=== PATIENT | female | born 2000 | race Caucasian/White ===

== ENCOUNTER 2023-05-23 16:07 | Emergency (ER) | payer BC ==
[2023-05-23] MEDS ORDERED: Boostrix 0.5 ML (Tdap) VIAL (>/=7 yrs of age) ONE (16:32)
== END 2023-05-23 18:25 | disposition home or self-care (01) ==
LOC: CSHERS 16:07
DX: S01.01XA Laceration without foreign body of scalp, initial encounter (principal); S19.9XXA Unspecified injury of neck, initial encounter; Z55.6 Problems related to health literacy; Z23 Encounter for immunization; V86.95XA Unspecified occupant of 3- or 4- wheeled all-terrain vehicle (ATV) injured in nontraffic accident, initial encounter
CPT/HCPCS: 12002; 70450; 72125; 90471; 90715